=== PATIENT | male | born 1950 | race Caucasian/White ===

== ENCOUNTER 2023-02-16 10:57 | Outpatient (AMB) | payer MEDICARE, OTHER, SELFPAY ==
--- NOTE | 2023-02-16 11:35 | HO.SPINEOV ---
Intake Intake Visit Reasons: Neck pain Intake Note: Mr. Brown is here today c/o neck pain and involuntary head movements. MRI done @ [place]. Transport Assistant Required: No Assessment & Plan Assessment & Plan (1) Titubation: Code(s): R26.0 - Ataxic gait Plan Dear colleague Thank you for referring Alejandro Brown to the office today with a chief complaint of involuntarily neck movement. HPI: This 72-year-old [place] comes in for neck pain. He developed involuntary movements of his neck few months ago and consequently neck pain, especially with rotation. 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 He reports no other symptoms such as weakness numbness or focal cord changes Physical Exam: Pleasant male. On inspection, titubations of his head are observed. No rest tremor of his hands. He ambulates with a cane. No shuffling gait. Normal reflexes. No pathological reflexes. Radiological Studies: MRI done at [place] on 02/14/2023 shows multilevel cervical stenosis C3-C6 Impression/Plan: This 72-year-old male developed titubations of his head. I think the neck pain is secondary to the constant involuntary movements of his neck. There is no indication for surgery. He needs to see a movement disorder neurologist for further evaluation. Thank you for allowing me to participate in your patients care. total time spent was 30 minutes in counseling ,coordination of plan, personal review of imaging, surgical decision making and subsequent plan Ant Mo MD, PhD [facility] Trained Neurosurgeon Director, [facility] Coding Level of Care Code New Pt Level 3 (01052) Diagnoses Titubation R26.0
== END 2023-02-16 12:53 | disposition home or self-care (01) ==
PROVIDERS: PCP Internal Medicine; Visit Provider Neurological Surgery
DX: R26.0 Ataxic gait (principal)
CPT/HCPCS: 99203

== ENCOUNTER → 2023-02-16 10:57 | Outpatient (BNVA) | payer MEDICARE, OTHER, SELFPAY | PROVIDERS: PCP Internal Medicine; Visit Provider Neurological Surgery | DX: R26.0 Ataxic gait (principal) | CPT/HCPCS: 99202 ==